=== PATIENT | male | born 1980 | race Caucasian/White ===

== ENCOUNTER → 2017-01-26 | Outpatient (CLI) | payer BC ==
[~2017-01-26] VITALS: Ht 172.7 cm; Wt 74.8 kg
[~2017-01-26] MED LIST: SINCALIDE 1.5 MCG in IV NORMAL SALINE 50ML 30 ML IV ONE
--- NOTE | 2017-01-26 10:51 | RAD ---
Right upper quadrant abdominal ultrasound, 01/26/2017: History: Epigastric pain The gallbladder is within normal limits in size. There is no sonographic evidence of cholelithiasis. The gallbladder wall is not thickened. No bile duct dilatation is seen. The visualized portions of the liver, pancreas and right kidney are unremarkable. IMPRESSION: No significant abnormality is detected.
--- NOTE | 2017-01-26 12:48 | RAD ---
Radionuclide hepatobiliary scan with gallbladder ejection fraction, 01/26/2017: History: Epigastric and right upper quadrant pain Following IV injection of 5.5 mCi of technetium 99m Choletec there was prompt uptake of the radionuclide from the blood stream by the liver. Activity is present in the bile ducts and gallbladder at 15 minutes. Small bowel activity develops at 25 minutes. Additional imaging of the gallbladder was performed following IV injection of 1.5 mcg of cholecystokinin. The gallbladder ejection fraction was calculated at 35%. On the latter images there was some extension of activity into the overlying hepatic flexure region which may have decreased the measured ejection fraction. IMPRESSION: 1. No evidence of cystic duct or common bile duct obstruction. 2. The gallbladder ejection fraction is 35%.
== END | disposition home or self-care (01) ==
LOC: US 09:16
PROVIDERS: ATTEND Internal Medicine Gastroenterology
DX: R10.13 Epigastric pain (principal); R07.9 Chest pain, unspecified
CPT/HCPCS: 76705; 78226; 96374; 96375; A9537; J2805

== ENCOUNTER → 2017-02-13 | Day surgery (SDC) | payer BC ==
[~2017-02-13] MED LIST changes: +HYDROmorphone 2 MG/ML VIAL IV PRN; +IV RINGERS,LACTATED 1000ML 1,000 ML IV SCH; +LIDOCAINE 1% 1 ML SYRINGE. ID PRN; +LIDOCAINE 2% PF Vial for OR 5 ML VIAL. ONE; +MORPHINE SULFATE 2 MG/ML DISP.SYRIN. IV PRN; +ONDANSETRON PF 4 MG/2 ML VIAL. IV PRN; +PROCHLORPERAZINE 10 MG/2 ML VIAL. IV PRN; +PROPOFOL 20 ML IV ONE; -SINCALIDE 1.5 MCG in IV NORMAL SALINE 50ML 30 ML IV ONE; +fentaNYL PF VIAL 100 MCG/2 ML VIAL IV PRN
[2017-02-13 07:50] VITALS: BP 114/67
--- NOTE | 2017-02-16 14:27 | PATHOLOGY ---
PATHOLOGY REPORT * * * * * * * * FINAL DIAGNOSIS: Small bowel biopsy: - No significant pathologic abnormalities. COMMENT: Sections of the small bowel biopsy reveal multiple segments of duodenal mucosa. Where best oriented, the mucosa villi appear normal and show no sprue-like changes or significant inflammatory changes. There is no evidence of malignancy. (JPM:pit; 02/16/2017) REPORT ELECTRONICALLY SIGNED BY: Jac Giles M.D. DATE/TIME: 02/16/2017 14:26 * * * * * * * * GROSS PATHOLOGY: Received in formalin labeled "Luzmaria Borrego, small bowel," are multiple segments of trevino soft tissue measuring from 0.1 up to 0.4 cm in maximum dimension. The specimen is submitted entirely in cassette A1. (JPM; 02/13/17) INITIAL CPT CODE(S): A; 78378 Professional services [place] [facility] [place] [address] Technical services performed by [facility] at [address] [place] [address], [facility] [address] [address]. SPECIMEN(S) RECEIVED: A.Small bowel biopsy CLINICAL HISTORY: Abdominal pain; r/o celiac disease PATIENT: LUZMARIA BORREGO /AGE: 1105/27/1980 (Age: 36) PATIENT #: [id number] ALT CASE #: SPECIMEN COLLECTION DATE: 02/13/2017 SPECIMEN RECEIVED DATE: 02/13/2017 [facility] - [address] [place] [address] - PHONE: [phone] * * * END OF REPORT * * *
== END | disposition home or self-care (01) ==
LOC: ENDOS 06:09
PROVIDERS: ATTEND Internal Medicine Gastroenterology
DX: K29.50 Unspecified chronic gastritis without bleeding (principal); K31.89 Other diseases of stomach and duodenum
CPT/HCPCS: 43239; 88305; J2001; J2704

== ENCOUNTER → 2018-01-01 | Outpatient (CLI) | payer BC ==
[~2018-01-01] MED LIST changes: +CONTRAST GIVEN. MC; -HYDROmorphone 2 MG/ML VIAL IV PRN; -IV RINGERS,LACTATED 1000ML 1,000 ML IV SCH; -LIDOCAINE 1% 1 ML SYRINGE. ID PRN; -LIDOCAINE 2% PF Vial for OR 5 ML VIAL. ONE; -MORPHINE SULFATE 2 MG/ML DISP.SYRIN. IV PRN; -ONDANSETRON PF 4 MG/2 ML VIAL. IV PRN; -PROCHLORPERAZINE 10 MG/2 ML VIAL. IV PRN; -PROPOFOL 20 ML IV ONE; -fentaNYL PF VIAL 100 MCG/2 ML VIAL IV PRN
[2018-01-01] MEDS: IOHEXOL 240 MG/ML 50ML VIAL. PO (15:47)
[2018-01-01] MEDS: IOHEXOL 300 MG/ML 100ML VIAL. IV (15:47)
== END | disposition home or self-care (01) ==
LOC: KCIC CT 14:25
DX: M51.46 Schmorl's nodes, lumbar region (principal); N32.89 Other specified disorders of bladder; M43.17 Spondylolisthesis, lumbosacral region
CPT/HCPCS: 74177; Q9966; Q9967

== ENCOUNTER → 2018-01-07 | Outpatient (CLI) | payer BC ==
[2018-01-07] MEDS: BARIUM SULFATE 60% 355 ML SUSP PO (09:59)
== END | disposition home or self-care (01) ==
LOC: RAD 09:07
DX: R10.11 Right upper quadrant pain (principal)
CPT/HCPCS: 74250